=== PATIENT | male | born 1990 | race Hispanic/Latino ===

== ENCOUNTER 2018-01-29 07:48 | Emergency (ER) | payer SELFPAY ==
[~2018-01-29] VITALS: Ht 182.9 cm; Wt 75.0 kg
[~2018-01-29 07:48] MED LIST: MOTRIN800 MG PO
[2018-01-29] MEDS ORDERED: AMOXICILLIN500 M2 PO (08:09)
[2018-01-29] MEDS ORDERED: FLOXIN OTIC0.3 % OT (08:09)
[2018-01-29 08:12] VITALS: BP 130/87
== END 2018-01-29 08:20 | disposition home or self-care (01) | DRG 125 ==
LOC: ED 07:48
DX: H02.9 Unspecified disorder of eyelid (principal); H92.01 Otalgia, right ear; R50.9 Fever, unspecified

== ENCOUNTER 2018-05-31 12:54 | Emergency (ER) | payer SELFPAY ==
[~2018-05-31] VITALS: Ht 182.9 cm; Wt 72.7 kg
[~2018-05-31 12:54] MED LIST changes: +AMOXICILLIN500 M2 PO; +FLOXIN OTIC0.3 % OT
[2018-05-31 14:11] VITALS: BP 136/83
[2018-05-31] MEDS ORDERED: MEDDOSEPAK PO (14:12)
[2018-05-31] MEDS ORDERED: PEPCID20 MG PO (14:12)
== END 2018-05-31 14:15 | disposition home or self-care (01) | DRG 607 ==
LOC: ED 12:54
DX: L24.7 Irritant contact dermatitis due to plants, except food (principal)

== ENCOUNTER 2019-03-18 13:31 | Emergency (ER) | payer SELFPAY ==
[~2019-03-18] VITALS: Ht 185.4 cm; Wt 80.0 kg
[~2019-03-18 13:31] MED LIST changes: +MEDDOSEPAK PO; +PEPCID20 MG PO
[2019-03-18 15:13] LABS: HEMATOCRIT 48.4 % (39.0-50.0); HEMOGLOBIN 16.7 g/dl (14.0-18.0); IMMATURE GRANULOCYTES 0.3 % (0.0-5.0); MEAN CELL VOLUME 94.5 fL CALC (80.0-100.0); MEAN CORPUSCULAR HGB 32.6 pG CALC (26.0-32.0); MEAN CORPUSCULAR HGB CONC 34.5 g/L CALC (32.0-36.0); NEUT# 3.92 thou/uL (1.82-7.42); RED BLOOD COUNT 5.12 mill/uL (4.70-6.10); RED CELL DISTRI WIDTH 12.4 % (11.5-15.5)
[2019-03-18 15:15] LABS: URINE BILIRUBIN - DIPSTICK NEGATIVE (NEGATIVE); URINE BLOOD DIPSTICK NEGATIVE (NEGATIVE); URINE COLOR YELLOW; URINE GLUCOSE - DIPSTICK NEGATIVE (NEGATIVE); URINE KETONE TRACE mg/dL (NEGATIVE); URINE LEUK ESTERASE NEGATIVE (NEGATIVE); URINE NITRITE - DIPSTICK NEGATIVE (Negative); URINE PROTEIN - DIPSTICK NEGATIVE (NEG-TRACE); URINE SPECIFIC GRAVITY 1.025; URINE UROBILINOGEN - DIPSTICK 0.2 E.U./dL (0.2)
[2019-03-18 15:32] LABS: ALKALINE PHOSPHATASE 93 u/l (38-126); ANION GAP 15 (6-22 (CALC)); BILIRUBIN, TOTAL 0.7 mg/dL (0.0-1.4); BUN 9 mg/dL (9-20); BUN/CREATININE RATIO 11 (12-20 (CALC)); CARBON DIOXIDE 26 mmol/l (22-30); CHLORIDE 101 mmol/l (95-108); CREATININE 0.8 mg/dL (0.7-1.3); GFR > 60 ML/MIN (>=60 (CALC)); GFR FOR AFR.AMER. > 60 ML/MIN (>=60 (CALC)); LIPASE 441 u/l (23-300); POTASSIUM 4.3 mmol/l (3.5-5.1); SGOT/AST 32 u/l (17-59); SODIUM 137 mmol/l (137-146); TOTAL PROTEIN 8.3 g/dL (6.3-8.2)
[2019-03-18 17:35] VITALS: BP 98/61
== END 2019-03-18 17:44 | disposition home or self-care (01) | DRG 392 ==
LOC: ED 13:31
PROVIDERS: Family Medicine
DX: K52.9 Noninfective gastroenteritis and colitis, unspecified (principal); R10.32 Left lower quadrant pain
CPT/HCPCS: Q9967

== ENCOUNTER 2019-03-28 18:26 | Emergency (ER) | payer SELFPAY ==
[~2019-03-28] VITALS: Ht 185.4 cm; Wt 75.0 kg
[2019-03-28] MEDS ORDERED: KEFLEX500 M1 PO (19:10)
[2019-03-28 19:20] VITALS: BP 121/77
== END 2019-03-28 19:20 | disposition home or self-care (01) | DRG 605 ==
LOC: ED 18:26
PROC: 0HQLXZZ Repair Left Lower Leg Skin, External Approach (ICD-10-PCS; principal; 2019-03-28)
DX: S81.012A Laceration without foreign body, left knee, initial encounter (principal); W01.111A Fall on same level from slipping, tripping and stumbling with subsequent striking against power tool or machine, initial encounter; Y93.H2 Activity, gardening and landscaping; Y92.89 Other specified places as the place of occurrence of the external cause; Y99.0 Civilian activity done for income or pay

== ENCOUNTER 2019-04-09 17:40 | Emergency (ER) | payer SELFPAY ==
[~2019-04-09] VITALS: Ht 185.4 cm; Wt 72.7 kg
[~2019-04-09 17:40] MED LIST changes: +KEFLEX500 M1 PO
[2019-04-09 18:10] VITALS: BP 125/77
== END 2019-04-09 18:10 | disposition home or self-care (01) | DRG 950 ==
LOC: ED 17:40
DX: S81.012D Laceration without foreign body, left knee, subsequent encounter (principal); X58.XXXD Exposure to other specified factors, subsequent encounter

== ENCOUNTER 2019-07-18 | Emergency (ER) | payer SELFPAY ==
[2019-07-18] MEDS ORDERED: VICODIN1 TA1 PO (19:52)
[2019-07-18] MEDS ORDERED: ANTIBIOTIC (19:53)
[2019-07-18 20:06] LABS: HEMOGLOBIN 15.4 g/dl (14.0-18.0); IMMATURE GRANULOCYTES 0.2 % (0.0-5.0); MEAN CELL VOLUME 95.3 fL CALC (80.0-100.0); MEAN CORPUSCULAR HGB 32.6 pG CALC (26.0-32.0); MEAN CORPUSCULAR HGB CONC 34.2 g/dL CAL (32.0-36.0); NEUT# 5.34 thou/uL (1.82-7.42); RED BLOOD COUNT 4.72 mill/uL (4.70-6.10); RED CELL DISTRI WIDTH 12.6 % (11.5-15.5)
[2019-07-18 20:17] LABS: ALBUMIN 4.7 g/dL (3.2-5.0); ALKALINE PHOSPHATASE 75 u/l (38-126); ANION GAP 14 (6-22 (CALC)); BILIRUBIN, TOTAL 0.6 mg/dL (0.0-1.4); BUN 14 mg/dL (9-20); BUN/CREATININE RATIO 17 (12-20 (CALC)); CARBON DIOXIDE 27 mmol/l (22-30); CHLORIDE 100 mmol/l (95-108); CREATININE 0.8 mg/dL (0.7-1.3); GFR > 60 ML/MIN (>=60 (CALC)); GFR FOR AFR.AMER. > 60 ML/MIN (>=60 (CALC)); POTASSIUM 3.9 mmol/l (3.5-5.1); SGOT/AST 27 u/l (17-59); SODIUM 138 mmol/l (137-146); TOTAL PROTEIN 7.7 g/dL (6.3-8.2)
[2019-07-18 20:29] LABS: MYOGLOBIN 25 ng/mL (0 - 121)
== END 2019-07-18 20:55 | disposition home or self-care (01) | DRG 204 ==
PROVIDERS: Family Medicine
DX: R06.02 Shortness of breath (principal); B34.9 Viral infection, unspecified

== ENCOUNTER 2019-10-20 13:45 | Emergency (ER) | payer SELFPAY ==
[~2019-10-20] VITALS: Ht 188 cm; Wt 60.0 kg
[~2019-10-20 13:45] MED LIST changes: +ANTIBIOTIC; +VICODIN1 TA1 PO
[2019-10-20 15:27] LABS: HEMATOCRIT 42.4 % (39.0-50.0); HEMOGLOBIN 14.5 g/dl (14.0-18.0); IMMATURE GRANULOCYTES 0.4 % (0.0-5.0); MEAN CELL VOLUME 95.7 fL CALC (80.0-100.0); MEAN CORPUSCULAR HGB 32.7 pG CALC (26.0-32.0); MEAN CORPUSCULAR HGB CONC 34.2 g/dL CAL (32.0-36.0); NEUT# 2.93 thou/uL (1.82-7.42); RED BLOOD COUNT 4.43 mill/uL (4.70-6.10); RED CELL DISTRI WIDTH 12.5 % (11.5-15.5)
[2019-10-20 15:38] LABS: URINE BILIRUBIN - DIPSTICK NEGATIVE (NEGATIVE); URINE BLOOD DIPSTICK NEGATIVE (NEGATIVE); URINE COLOR YELLOW; URINE GLUCOSE - DIPSTICK NEGATIVE (NEGATIVE); URINE KETONE NEGATIVE (NEGATIVE); URINE LEUK ESTERASE NEGATIVE (NEGATIVE); URINE NITRITE - DIPSTICK NEGATIVE (Negative); URINE PROTEIN - DIPSTICK NEGATIVE (NEG-TRACE); URINE SPECIFIC GRAVITY 1.025; URINE UROBILINOGEN - DIPSTICK 0.2 E.U./dL (0.2)
[2019-10-20 15:57] LABS: ALBUMIN 4.1 g/dL (3.2-5.0); ALKALINE PHOSPHATASE 67 u/l (38-126); ANION GAP 8 (6-22 (CALC)); BILIRUBIN, TOTAL 0.2 mg/dL (0.0-1.4); BUN 8 mg/dL (9-20); BUN/CREATININE RATIO 12 (12-20 (CALC)); CARBON DIOXIDE 30 mmol/l (22-30); CHLORIDE 105 mmol/l (95-108); CREATININE 0.7 mg/dL (0.7-1.3); GFR > 60 ML/MIN (>=60 (CALC)); GFR FOR AFR.AMER. > 60 ML/MIN (>=60 (CALC)); SGOT/AST 21 u/l (17-59); SODIUM 139 mmol/l (137-146); TOTAL PROTEIN 6.4 g/dL (6.3-8.2)
[2019-10-20] MEDS ORDERED: VENTOLIN HFA IN (16:56)
[2019-10-20] MEDS ORDERED: HYDROXYZ HCL25 MG PO (16:56)
[2019-10-20 17:04] VITALS: BP 118/62
== END 2019-10-20 17:13 | disposition home or self-care (01) | DRG 880 ==
LOC: ED 13:45
DX: F41.9 Anxiety disorder, unspecified (principal); Z20.828 Contact with and (suspected) exposure to other viral communicable diseases